=== PATIENT | female | born 1995 | race Two or more races ===

== ENCOUNTER 2022-10-10 02:33 | Inpatient (IN) | payer SELFPAY ==
[~2022-10-10] VITALS: Ht 157.5 cm; Wt 72.6 kg
[2022-10-10] MEDS ORDERED: TERBUTALINE SULFATE 1 MG/ML 1ML VIAL SC ONE (02:59)
[2022-10-10] MEDS ORDERED: ceFAZolin 1GM/50ML 50 ML IV ONE ×2 (03:00→03:30)
[2022-10-10] MEDS ORDERED: LACTATED RINGER'S 1,000 ML IV SCH (03:00)
[2022-10-10] MEDS ORDERED: LACTATED RINGER'S 1,000 ML IV ONE (03:00)
[2022-10-10] MEDS: TERBUTALINE SULFATE 1 MG/ML 1ML VIAL SC SCH ×3 (03:10→04:59)
[2022-10-10] MEDS ORDERED: PREN-96 PO (04:47)
== END 2022-10-10 05:55 | disposition home or self-care (01) | DRG 833 ==
LOC: LDRP 02:33
PROVIDERS: ADMIT Obstetrics & Gynecology; ATTEND Obstetrics & Gynecology
DX: O26.93 Pregnancy related conditions, unspecified, third trimester (principal); Z3A.33 33 weeks gestation of pregnancy
CPT/HCPCS: 59025; 76815; 76817; 81002; 82948; 94760; G0378; J0690